=== PATIENT | female | born 1945 | race Caucasian/White ===

== ENCOUNTER → 2016-06-26 | Outpatient (CLI) | payer OTHER ==
[~2016-06-26] MED LIST: AMITRIP PO; ASPI-492 OR; ERYT250C12 OR; LANS15CA21 OR; RANITAB8 OR; TYLENOL #3; [UNRECOGNIZED DRUG - OTHER]
[2016-06-26 11:14] LABS: Albumin 3.2 g/dL (3.4-5.0); BUN/Creatinine Ratio 20.6; Bilirubin, Total 0.3 mg/dL (0.2-1.0); Calcium 8.5 mg/dL (8.5-10.1); Potassium 3.5 mmol/L (3.5-5.1); Total Protein 7.2 g/dL (6.4-8.2)
[2016-06-26 11:20] LABS: Basophils # (auto) 0.1 uL; Basophils % (auto) 0.9 % (0.0-2.0); DEFINITIVE VIEW TRANSMISSION; Eosinophils # (auto) 0.2 uL; Eosinophils % (auto) 2.8 % (0.0-7.0); Hematocrit 27.3 % (36.0-46.0); Hemoglobin 8.1 g/dL (12.2-16.2); Mean Corpuscular Hemoglobin 20.7 pg (28.0-32.0); Mean Corpuscular Hgb Conc. 29.6 g/dL (32.0-36.0); Mean Corpuscular Volume 69.9 fL (80.0-100.0); Mean Platelet Volume 9.3 fL (7.4-10.4); Monocytes # (auto) 0.4 uL; Neutrophils # (auto) 5.1 uL; Neutrophils % (auto) 65.3 % (37.0-80.0); Platelet Count (auto) 535 10^3/uL (140-450); Red Cell Distribution Width 19.6 % (11.6-16.0); White Blood Cell 7.8 10^3/uL (4.4-10.8)
[2016-06-26 11:26] LABS: Hypochromia Marked; Platelet Estimate Increased
[2016-06-26 11:27] LABS: Anisocytosis Moderate; Microcytosis Moderate
[2016-06-26 11:28] LABS: Polychromasia Slight; Schistocytes FEW
== END | disposition home or self-care (01) ==
LOC: LAB 10:11
PROVIDERS: ATTEND Internal Medicine
DX: Z00.00 Encounter for general adult medical examination without abnormal findings (principal)
CPT/HCPCS: 36415; 80053; 80061; 85025

== ENCOUNTER → 2016-08-28 | Outpatient (CLI) | payer OTHER ==
[~2016-08-28] MED LIST changes: +ERYT250C OR; -ERYT250C12 OR
[2016-08-28 11:48] LABS: Basophils # (auto) 0.1 uL; Basophils % (auto) 0.8 % (0.0-2.0); CONDITION Y; DEFINITIVE SEE PRINTOUT; Eosinophils # (auto) 0.2 uL; Eosinophils % (auto) 2.6 % (0.0-7.0); Hematocrit 41.7 % (36.0-46.0); Hemoglobin 13.6 g/dL (12.2-16.2); Lymphocytes # (auto) 2.2 uL; Lymphocytes % (auto) 32.9 % (10.0-50.0); Mean Corpuscular Hemoglobin 29.6 pg (28.0-32.0); Mean Corpuscular Hgb Conc. 32.6 g/dL (32.0-36.0); Mean Corpuscular Volume 90.9 fL (80.0-100.0); Mean Platelet Volume 9.3 fL (7.4-10.4); Monocytes # (auto) 0.4 uL; Monocytes % (auto) 6.3 % (0.0-12.0); Neutrophils # (auto) 3.9 uL; Neutrophils % (auto) 57.4 % (37.0-80.0); Platelet Count (auto) 303 10^3/uL (140-450); White Blood Cell 6.7 10^3/uL (4.4-10.8)
[2016-08-28 12:02] LABS: Red Cell Distribution Width 24.7 % (11.6-16.0)
[2016-08-28 12:57] LABS: Anisocytosis Slight; Burr Cells FEW; Ovalocytes FEW; Platelet Estimate Adequate
== END | disposition home or self-care (01) ==
LOC: LAB 10:52
PROVIDERS: ATTEND Internal Medicine
DX: D64.9 Anemia, unspecified (principal)
CPT/HCPCS: 36415; 82270; 82728; 83540; 83550; 85025

== ENCOUNTER → 2016-09-17 | Day surgery (SDC) | payer OTHER ==
[2016-09-10 16:56] LABS: INR 0.86 (0.9-1.15); Partial Thromboplastin Time 27.9 sec (22.64-33.71); Prothrombin Time 9.4 sec (9.37-12.3)
[2016-09-10 17:15] LABS: Basophils # (auto) 0.1 uL; Basophils % (auto) 1.1 % (0.0-2.0); CONDITION Y; DEFINITIVE SEE PRINTOUT; Eosinophils # (auto) 0.1 uL; Eosinophils % (auto) 2.6 % (0.0-7.0); Hematocrit 42.4 % (36.0-46.0); Hemoglobin 13.8 g/dL (12.2-16.2); Lymphocytes # (auto) 2.1 uL; Mean Corpuscular Hemoglobin 30.3 pg (28.0-32.0); Mean Corpuscular Hgb Conc. 32.5 g/dL (32.0-36.0); Mean Corpuscular Volume 93.4 fL (80.0-100.0); Mean Platelet Volume 9.9 fL (7.4-10.4); Monocytes # (auto) 0.3 uL; Monocytes % (auto) 5.6 % (0.0-12.0); Neutrophils # (auto) 3.2 uL; Neutrophils % (auto) 54.7 % (37.0-80.0); Platelet Count (auto) 328 10^3/uL (140-450); Red Cell Distribution Width 21.2 % (11.6-16.0); White Blood Cell 5.8 10^3/uL (4.4-10.8)
[~2016-09-17] VITALS: Ht 154.9 cm; Wt 46.3 kg
[~2016-09-17] MED LIST changes: +ACE3T PO; -ERYT250C OR; +FLUMAZENIL 0.1 MG/ML INJ 10ML MDV IV ONE; +LIDOCAINE VISCOUS 2% 15ML UD ONE; +MIDAZOLAM HCL 5 MG/ML-1ML VIAL ONE; +NALOXONE HCL 0.4 MG/ML VIAL ONE; +PRO20T OR; -RANITAB8 OR; +SODIUM CHLORIDE LOCK 10 ML ONE; +SUMA100T2 PO; +TRIA75TA55 PO; -TYLENOL #3; -[UNRECOGNIZED DRUG - OTHER]; +diphenhdrAMINE HCL 50 MG/1 ML VL ONE; +fentaNYL CITRATE 100 MCG/2 ML VL ONE
[2016-09-17] MEDS: fentaNYL CITRATE 100 MCG/2 ML VL ONE ×4 (09:34→09:56)
[2016-09-17] MEDS: MIDAZOLAM HCL 5 MG/ML-1ML VIAL ONE ×3 (09:34→09:47)
[2016-09-17 10:50] VITALS: BP 117/60
== END | disposition home or self-care (01) ==
LOC: GI 07:54
PROVIDERS: ATTEND Internal Medicine Gastroenterology
DX: K64.8 Other hemorrhoids (principal); K22.2 Esophageal obstruction; K28.9 Gastrojejunal ulcer, unspecified as acute or chronic, without hemorrhage or perforation; T18.2XXA Foreign body in stomach, initial encounter
CPT/HCPCS: 36415; 43249; 45378; 85025; 85610; 85730; J2250

== ENCOUNTER 2016-10-29 08:04 | Day surgery (SDC) | payer OTHER ==
[2016-10-25 11:40] LABS: Basophils # (auto) 0 uL; Basophils % (auto) 0.4 % (0.0-2.0); CONDITION Y; Eosinophils # (auto) 0.1 uL; Eosinophils % (auto) 1.8 % (0.0-7.0); Hematocrit 42.7 % (36.0-46.0); Hemoglobin 14.5 g/dL (12.2-16.2); Lymphocytes % (auto) 29.4 % (10.0-50.0); Mean Corpuscular Hemoglobin 31.8 pg (28.0-32.0); Mean Corpuscular Volume 93.7 fL (80.0-100.0); Mean Platelet Volume 9.3 fL (7.4-10.4); Monocytes # (auto) 0.4 uL; Monocytes % (auto) 6.3 % (0.0-12.0); Neutrophils # (auto) 4.2 uL; Neutrophils % (auto) 62.1 % (37.0-80.0); Platelet Count (auto) 310 10^3/uL (140-450); Red Cell Distribution Width 12.8 % (11.6-16.0); White Blood Cell 6.8 10^3/uL (4.4-10.8)
[2016-10-25 11:51] LABS: INR 0.89 (0.9-1.15); Partial Thromboplastin Time 27.9 sec (22.64-33.71); Prothrombin Time 9.7 sec (9.37-12.3)
[~2016-10-29] VITALS: Ht 154.9 cm; Wt 44.0 kg
[~2016-10-29 08:04] MED LIST changes: -FLUMAZENIL 0.1 MG/ML INJ 10ML MDV IV ONE; -LIDOCAINE VISCOUS 2% 15ML UD ONE; -MIDAZOLAM HCL 5 MG/ML-1ML VIAL ONE; -NALOXONE HCL 0.4 MG/ML VIAL ONE; -SODIUM CHLORIDE LOCK 10 ML ONE; -diphenhdrAMINE HCL 50 MG/1 ML VL ONE; -fentaNYL CITRATE 100 MCG/2 ML VL ONE
[2016-10-29] MEDS ORDERED: NALOXONE HCL 0.4 MG/ML VIAL ONE (08:09)
[2016-10-29] MEDS ORDERED: SODIUM CHLORIDE LOCK 10 ML ONE (08:10)
[2016-10-29] MEDS ORDERED: LIDOCAINE VISCOUS 2% 15ML UD ONE (08:10)
[2016-10-29] MEDS ORDERED: FLUMAZENIL 0.1 MG/ML INJ 10ML MDV IV ONE (08:10)
[2016-10-29] MEDS ORDERED: diphenhdrAMINE HCL 50 MG/1 ML VL ONE (08:10)
[2016-10-29] MEDS: fentaNYL CITRATE 100 MCG/2 ML VL ONE ×3 (09:15→09:30)
[2016-10-29] MEDS: MIDAZOLAM HCL 5 MG/ML-1ML VIAL ONE ×3 (09:15→09:30)
[2016-10-29 10:03] VITALS: BP 104/66
== END 2016-10-29 10:13 | disposition home or self-care (01) ==
LOC: GI 08:04
PROVIDERS: ATTEND Internal Medicine Gastroenterology
DX: K63.89 Other specified diseases of intestine (principal); K28.9 Gastrojejunal ulcer, unspecified as acute or chronic, without hemorrhage or perforation; T18.2XXA Foreign body in stomach, initial encounter
CPT/HCPCS: 36415; 43249; 85025; 85610; 85730; C1726; J1200; J2250; J3010; J7030; 99152

== ENCOUNTER 2017-04-01 07:49 | Day surgery (SDC) | payer OTHER ==
[2017-03-28 10:47] LABS: Basophils # (auto) 0.1 uL; Basophils % (auto) 1.1 % (0.0-2.0); Eosinophils # (auto) 0.2 uL; Hematocrit 39.4 % (36.0-46.0); Hemoglobin 12.5 g/dL (12.2-16.2); Lymphocytes # (auto) 1.8 uL; Lymphocytes % (auto) 29.7 % (10.0-50.0); Mean Corpuscular Hemoglobin 28.6 pg (28.0-32.0); Mean Corpuscular Hgb Conc. 31.7 g/dL (32.0-36.0); Mean Corpuscular Volume 90.1 fL (80.0-100.0); Monocytes # (auto) 0.4 uL; Monocytes % (auto) 6.7 % (0.0-12.0); Neutrophils # (auto) 3.6 uL; Neutrophils % (auto) 59.5 % (37.0-80.0); Platelet Count (auto) 315 10^3/uL (140-450); Red Blood Cells 4.37 10^6/uL (4.0-5.20); White Blood Cell 6.1 10^3/uL (4.4-10.8)
[2017-03-28 10:58] LABS: INR 0.9 (0.9-1.15); Prothrombin Time 9.8 sec (9.37-12.3)
[~2017-04-01] VITALS: Ht 154.9 cm; Wt 44.5 kg
[~2017-04-01 07:49] MED LIST changes: +FAM20T PO; -LANS15CA21 OR; +PANT40TA2 PO; +SUCR1TAB38 OR
[2017-04-01] MEDS ORDERED: SODIUM CHLORIDE LOCK 10 ML ONE (08:09)
[2017-04-01] MEDS ORDERED: LIDOCAINE VISCOUS 2% 15ML UD ONE (08:09)
[2017-04-01] MEDS ORDERED: diphenhdrAMINE HCL 50 MG/1 ML VL ONE (08:09)
[2017-04-01] MEDS: MIDAZOLAM HCL 5 MG/ML-1ML VIAL ONE ×2 (09:28→09:32)
[2017-04-01] MEDS: fentaNYL CITRATE 100 MCG/2 ML VL ONE ×2 (09:28→09:32)
[2017-04-01 10:25] VITALS: BP 119/85
== END 2017-04-01 10:35 | disposition home or self-care (01) ==
LOC: GI 07:49
PROVIDERS: ATTEND Internal Medicine Gastroenterology
DX: K28.9 Gastrojejunal ulcer, unspecified as acute or chronic, without hemorrhage or perforation (principal); T18.2XXA Foreign body in stomach, initial encounter; Z88.4 Allergy status to anesthetic agent; K31.89 Other diseases of stomach and duodenum
CPT/HCPCS: 36415; 43249; 85025; 85610; C1726; J1200; J2250; J3010; J7030; 99152

== ENCOUNTER → 2017-06-26 | Outpatient (CLI) | payer OTHER ==
[2017-06-26 11:04] LABS: Albumin 3.3 g/dL (3.4-5.0); Calcium 8.5 mg/dL (8.5-10.1); Potassium 3.7 mmol/L (3.5-5.1)
[2017-06-26 11:06] LABS: BUN/Creatinine Ratio 24.7
[2017-06-26 11:08] LABS: Bilirubin, Total 0.3 mg/dL (0.2-1.0)
[2017-06-26 11:13] LABS: Urine Bacteria NONE SEEN /hpf (None Seen); Urine Blood Negative /uL (Negative); Urine Mucus FEW (None Seen); Urine Specific Gravity 1.022 (1.001-1.035); Urine WBC 4 /hpf (0 - 5)
== END | disposition home or self-care (01) ==
LOC: LAB 10:05
PROVIDERS: ATTEND Internal Medicine
DX: M81.8 Other osteoporosis without current pathological fracture (principal); I10 Essential (primary) hypertension
CPT/HCPCS: 36415; 80053; 80061; 81001; 84443

== ENCOUNTER → 2017-10-29 | Outpatient (CLI) | payer OTHER ==
[~2017-10-29] VITALS: Ht 156.2 cm; Wt 47.2 kg
[2017-10-29 12:42] LABS: Basophils # (auto) 0.1 uL; Eosinophils # (auto) 0.4 uL; Lymphocytes # (auto) 2.1 uL; Monocytes # (auto) 0.4 uL; Neutrophils # (auto) 3.6 uL; White Blood Cell 6.6 10^3/uL (4.4-10.8)
[2017-10-29 12:44] LABS: Eosinophils % (auto) 6.3 % (0.0-7.0); Hematocrit 35.2 % (36.0-46.0); Hemoglobin 10.7 g/dL (12.2-16.2); Lymphocytes % (auto) 31.6 % (10.0-50.0); Mean Corpuscular Hemoglobin 23.5 pg (28.0-32.0); Mean Corpuscular Hgb Conc. 30.5 g/dL (32.0-36.0); Mean Corpuscular Volume 77.2 fL (80.0-100.0); Monocytes % (auto) 6.1 % (0.0-12.0); Nucleated Red Blood Cells % 0.1 %; Platelet Count (auto) 421 10^3/uL (140-450); Red Blood Cells 4.56 10^6/uL (4.0-5.20)
[2017-10-29 12:59] LABS: INR 0.86 (0.9-1.15); Partial Thromboplastin Time 27.3 sec (23.78-33.04); Prothrombin Time 9.3 sec (9.27-12.13)
[2017-10-29 13:02] LABS: Albumin 3.6 g/dL (3.4-5.0); BUN/Creatinine Ratio 20.5; Bilirubin, Total 0.4 mg/dL (0.2-1.0); Calcium 8.8 mg/dL (8.5-10.1); Potassium 3.4 mmol/L (3.5-5.1); Total Protein 7.6 g/dL (6.4-8.2)
[2017-10-29 13:46] LABS: Urine Bacteria NONE SEEN /hpf (None Seen); Urine Blood Negative /uL (Negative); Urine Mucus FEW (None Seen); Urine Specific Gravity 1.013 (1.001-1.035); Urine WBC 1 /hpf (0 - 5)
== END | disposition home or self-care (01) ==
LOC: LAB 08:00 → EDSTATUS 11-01 11:30
PROVIDERS: ATTEND Surgery
DX: M31.6 Other giant cell arteritis (principal)
CPT/HCPCS: 36415; 80053; 81001; 85025; 85610; 85730

== ENCOUNTER 2017-10-30 08:48 | Day surgery (SDC) | payer OTHER ==
[~2017-10-30] VITALS: Ht 154.9 cm; Wt 48.5 kg
[2017-10-30] MEDS ORDERED: ceFAZolin 1GM/50ML 50 ML IV ONE (10:14)
[2017-10-30] MEDS ORDERED: MIDAZOLAM HCL 1MG/1ML-2 ML VIAL ONE (10:24)
[2017-10-30] MEDS ORDERED: fentaNYL CITRATE 100 MCG/2 ML VL ONE (10:24)
[2017-10-30] MEDS ORDERED: ONDANSETRON HCL 4 MG/2 ML VIAL ONE (10:25)
[2017-10-30] MEDS ORDERED: SODIUM CHLORIDE LOCK 10 ML ONE (10:25)
[2017-10-30] MEDS ORDERED: PROPOFOL 10 MG/ML 20 ML IV ONE (10:25)
[2017-10-30] MEDS ORDERED: LIDOCAINE 1% (LOCAL ANESTH.) PF 5ml SDV ONE (10:55)
[2017-10-30] MEDS ORDERED: fentaNYL CITRATE 100 MCG/2 ML VL IV ONE (11:00)
[2017-10-30] MEDS ORDERED: METOCLOPRAMIDE HCL 5MG/ml INJ 2ml VIAL IV ONE (11:00)
[2017-10-30 13:53] VITALS: BP 130/77
== END 2017-10-30 13:55 | disposition home or self-care (01) ==
LOC: SUR 08:48
PROVIDERS: ATTEND Surgery
DX: K56.699 Other intestinal obstruction unspecified as to partial versus complete obstruction (principal); I66.02 Occlusion and stenosis of left middle cerebral artery; K29.60 Other gastritis without bleeding; K28.9 Gastrojejunal ulcer, unspecified as acute or chronic, without hemorrhage or perforation; T18.2XXA Foreign body in stomach, initial encounter; I10 Essential (primary) hypertension; K21.9 Gastro-esophageal reflux disease without esophagitis; F03.90 Unspecified dementia, unspecified severity, without behavioral disturbance, psychotic disturbance, mood disturbance, and anxiety; I34.1 Nonrheumatic mitral (valve) prolapse; M81.0 Age-related osteoporosis without current pathological fracture; H40.9 Unspecified glaucoma; D32.9 Benign neoplasm of meninges, unspecified; M19.90 Unspecified osteoarthritis, unspecified site; Z93.1 Gastrostomy status; Z98.890 Other specified postprocedural states; Z86.73 Personal history of transient ischemic attack (TIA), and cerebral infarction without residual deficits; Z79.82 Long term (current) use of aspirin; Z88.8 Allergy status to other drugs, medicaments and biological substances
CPT/HCPCS: 37609; 44799; 88305; 88313; 88331; A6257; C1726; J0690; J2250; J2405; J2704; J3010

== ENCOUNTER → 2017-12-10 | Outpatient (CLI) | payer OTHER ==
[2017-12-10 11:11] LABS: Basophils # (auto) 0.1 uL; Hemoglobin 11.3 g/dL (12.2-16.2); Neutrophils # (auto) 4.5 uL
[2017-12-10 11:13] LABS: Basophils % (auto) 1.2 % (0.0-2.0); Eosinophils # (auto) 0 uL; Eosinophils % (auto) 0.8 % (0.0-7.0); Hematocrit 36.6 % (36.0-46.0); Lymphocytes # (auto) 1.4 uL; Lymphocytes % (auto) 20.9 % (10.0-50.0); Mean Corpuscular Hemoglobin 23.6 pg (28.0-32.0); Mean Corpuscular Volume 76.1 fL (80.0-100.0); Monocytes # (auto) 0.6 uL; Monocytes % (auto) 8.6 % (0.0-12.0); Neutrophils % (auto) 68.5 % (37.0-80.0); Platelet Count (auto) 504 10^3/uL (140-450); Red Blood Cells 4.81 10^6/uL (4.0-5.20); Red Cell Distribution Width 18.6 % (11.8-14.3); White Blood Cell 6.6 10^3/uL (4.4-10.8)
[2017-12-10 11:26] LABS: BUN/Creatinine Ratio 15.7
[2017-12-10 11:51] LABS: INR 0.88 (0.9-1.15); Prothrombin Time 9.5 sec (9.27-12.13)
[2017-12-10 11:55] LABS: Potassium 2.9 mmol/L (3.5-5.1)
== END | disposition home or self-care (01) ==
LOC: LAB 10:57
PROVIDERS: ATTEND Internal Medicine Gastroenterology
DX: R10.9 Unspecified abdominal pain (principal)
CPT/HCPCS: 36415; 80048; 85025; 85610

== ENCOUNTER → 2017-12-16 | Day surgery (SDC) | payer OTHER ==
[~2017-12-16] MED LIST changes: +FLUMAZENIL 0.1 MG/ML INJ 10ML MDV IV ONE; +LIDOCAINE VISCOUS 2% 15ML UD ONE; +NALOXONE HCL 0.4 MG/ML VIAL ONE; +SODIUM CHLORIDE LOCK 10 ML ONE; +diphenhdrAMINE HCL 50 MG/1 ML VL ONE
[2017-12-16] MEDS: fentaNYL CITRATE 100 MCG/2 ML VL ONE ×2 (09:14→09:17)
[2017-12-16] MEDS: MIDAZOLAM HCL 5 MG/ML-1ML VIAL ONE ×2 (09:14→09:17)
[2017-12-16 10:01] VITALS: BP 105/43
== END | disposition home or self-care (01) ==
LOC: GI 07:48
PROVIDERS: ATTEND Internal Medicine Gastroenterology
DX: K28.9 Gastrojejunal ulcer, unspecified as acute or chronic, without hemorrhage or perforation (principal); K56.699 Other intestinal obstruction unspecified as to partial versus complete obstruction; K29.50 Unspecified chronic gastritis without bleeding; F32.9 Major depressive disorder, single episode, unspecified; M19.90 Unspecified osteoarthritis, unspecified site; M81.0 Age-related osteoporosis without current pathological fracture; Z88.4 Allergy status to anesthetic agent; Z79.891 Long term (current) use of opiate analgesic; Z79.899 Other long term (current) drug therapy
CPT/HCPCS: 43239; 43245; 88305; 88342; A6257; J2250; J3010; J7030; 99152

== ENCOUNTER → 2018-02-11 | Outpatient (CLI) | payer OTHER ==
[~2018-02-11] MED LIST changes: -FLUMAZENIL 0.1 MG/ML INJ 10ML MDV IV ONE; -LIDOCAINE VISCOUS 2% 15ML UD ONE; -NALOXONE HCL 0.4 MG/ML VIAL ONE; -SODIUM CHLORIDE LOCK 10 ML ONE; -diphenhdrAMINE HCL 50 MG/1 ML VL ONE
[2018-02-11 11:18] LABS: Basophils # (auto) 0.1 uL; Basophils % (auto) 1.4 % (0.0-2.0); Eosinophils # (auto) 0.1 uL
[2018-02-11 11:20] LABS: Eosinophils % (auto) 2.3 % (0.0-7.0); Hematocrit 31.3 % (36.0-46.0); Hemoglobin 9.6 g/dL (12.2-16.2); Lymphocytes # (auto) 1.5 uL; Lymphocytes % (auto) 29.4 % (10.0-50.0); Mean Corpuscular Hemoglobin 23.4 pg (28.0-32.0); Mean Corpuscular Hgb Conc. 30.7 g/dL (32.0-36.0); Monocytes # (auto) 0.4 uL; Monocytes % (auto) 7.1 % (0.0-12.0); Neutrophils # (auto) 3.1 uL; Neutrophils % (auto) 59.8 % (37.0-80.0); Platelet Count (auto) 372 10^3/uL (140-450); Red Blood Cells 4.12 10^6/uL (4.0-5.20); Red Cell Distribution Width 18.3 % (11.8-14.3); White Blood Cell 5.2 10^3/uL (4.4-10.8)
[2018-02-11 11:27] LABS: INR 0.85 (0.9-1.15); Prothrombin Time 9.2 sec (9.27-12.13)
== END | disposition home or self-care (01) ==
LOC: LAB 10:14
PROVIDERS: ATTEND Internal Medicine Gastroenterology
DX: Z01.812 Encounter for preprocedural laboratory examination (principal)
CPT/HCPCS: 36415; 85025; 85610

== ENCOUNTER → 2018-02-14 | Day surgery (SDC) | payer OTHER ==
[~2018-02-14] MED LIST changes: +FLUMAZENIL 0.1 MG/ML INJ 10ML MDV IV ONE; +LIDOCAINE VISCOUS 2% 15ML UD ONE; +MIDAZOLAM HCL 5 MG/ML-1ML VIAL ONE; +NALOXONE HCL 0.4 MG/ML VIAL ONE; +SODIUM CHLORIDE LOCK 10 ML ONE; +diphenhdrAMINE HCL 50 MG/1 ML VL ONE; +fentaNYL CITRATE 100 MCG/2 ML VL ONE
[2018-02-14 09:46] VITALS: BP 136/85
== END | disposition home or self-care (01) ==
LOC: GI 07:52
PROVIDERS: ATTEND Internal Medicine Gastroenterology
DX: K56.699 Other intestinal obstruction unspecified as to partial versus complete obstruction (principal); K28.9 Gastrojejunal ulcer, unspecified as acute or chronic, without hemorrhage or perforation; K29.70 Gastritis, unspecified, without bleeding; T18.2XXA Foreign body in stomach, initial encounter; F32.9 Major depressive disorder, single episode, unspecified; M19.90 Unspecified osteoarthritis, unspecified site; M81.0 Age-related osteoporosis without current pathological fracture; Z88.4 Allergy status to anesthetic agent; Z86.73 Personal history of transient ischemic attack (TIA), and cerebral infarction without residual deficits; Z79.891 Long term (current) use of opiate analgesic; Z79.899 Other long term (current) drug therapy
CPT/HCPCS: 43249; A6257; J2250; J3010; J7030; 99152

== ENCOUNTER → 2018-06-05 | Outpatient (CLI) | payer OTHER ==
[~2018-06-05] MED LIST changes: -FLUMAZENIL 0.1 MG/ML INJ 10ML MDV IV ONE; -LIDOCAINE VISCOUS 2% 15ML UD ONE; -MIDAZOLAM HCL 5 MG/ML-1ML VIAL ONE; -NALOXONE HCL 0.4 MG/ML VIAL ONE; -SODIUM CHLORIDE LOCK 10 ML ONE; -diphenhdrAMINE HCL 50 MG/1 ML VL ONE; -fentaNYL CITRATE 100 MCG/2 ML VL ONE
[2018-06-05 12:21] LABS: Basophils # (auto) 0.1 uL; Eosinophils # (auto) 0.1 uL; Hemoglobin 8.2 g/dL (12.2-16.2); Lymphocytes # (auto) 1.7 uL; Neutrophils # (auto) 3.8 uL; Urine Bacteria NONE SEEN /hpf (None Seen); Urine Blood Negative /uL (Negative); Urine Specific Gravity 1.019 (1.001-1.035); Urine WBC 2 /hpf (0 - 5); White Blood Cell 6.1 10^3/uL (4.4-10.8)
[2018-06-05 12:23] LABS: Basophils % (auto) 1.3 % (0.0-2.0); Eosinophils % (auto) 1.9 % (0.0-7.0); Hematocrit 28.3 % (36.0-46.0); Lymphocytes % (auto) 28.6 % (10.0-50.0); Mean Corpuscular Hemoglobin 20.2 pg (28.0-32.0); Mean Corpuscular Hgb Conc. 28.8 g/dL (32.0-36.0); Mean Corpuscular Volume 70.3 fL (80.0-100.0); Monocytes # (auto) 0.3 uL; Neutrophils % (auto) 63.2 % (37.0-80.0); Nucleated Red Blood Cells % 0.1 %; Platelet Count (auto) 413 10^3/uL (140-450); Red Blood Cells 4.03 10^6/uL (4.0-5.20); Red Cell Distribution Width 17.9 % (11.8-14.3)
[2018-06-05 13:41] LABS: Alanine Aminotransferase 17 U/L (13-56); Albumin 3.4 g/dL (3.4-5.0); Alkaline Phosphatase 93 U/L (45-117); Aspartate Aminotransferase 10 U/L (15-37); BUN/Creatinine Ratio 31.9; Bilirubin, Total 0.4 mg/dL (0.2-1.0); Blood Urea Nitrogen 23 mg/dL (7-18); Carbon Dioxide 26 mmol/L (21-32); Cholesterol 151 mg/dL (< 200); GFR African American 102 mL/min; GFR Non-African American 85 mL/min; Glucose 90 mg/dL (74-106); HDL Cholesterol 77 mg/dL (40-59); LDL Cholesterol 70 mg/dL (< 100); Total Protein 7.3 g/dL (6.4-8.2); Triglycerides 87 mg/dL (< 150)
[2018-06-05 13:43] LABS: Anion Gap 7 (5-15); Chloride 102 mmol/L (98-107); Potassium 3.4 mmol/L (3.5-5.1); Sodium 135 mmol/L (136-145)
== END | disposition home or self-care (01) ==
LOC: LAB 10:46
PROVIDERS: ATTEND Internal Medicine
DX: E87.6 Hypokalemia (principal); I10 Essential (primary) hypertension; D64.9 Anemia, unspecified
CPT/HCPCS: 36415; 80053; 80061; 81001; 84439; 84443; 85025; 85652

== ENCOUNTER → 2020-01-05 | Outpatient (CLI) | payer OTHER ==
[~2020-01-05] MED LIST changes: -FAM20T PO; +FAMO20TA10 PO; +SUCR1TAB22 OR; -SUCR1TAB38 OR
== END | disposition home or self-care (01) ==
LOC: LAB 09:53
PROVIDERS: ATTEND Internal Medicine Gastroenterology
DX: K29.00 Acute gastritis without bleeding (principal); R10.9 Unspecified abdominal pain
CPT/HCPCS: 82270

== ENCOUNTER → 2020-01-13 | Outpatient (CLI) | payer OTHER ==
[2020-01-13 09:16] LABS: Basophils # (auto) 0.1 10 ^3/uL (0-0.2); Eosinophils # (auto) 0.2 10 ^3/uL (0-0.8); Hematocrit 46.5 % (36.0-46.0); Hemoglobin 15.2 g/dL (12.2-16.2); Lymphocytes # (auto) 1.4 10 ^3/uL (0.4-5.4); Lymphocytes % (auto) 22.7 % (10.0-50.0); Mean Corpuscular Hemoglobin 31.8 pg (28.0-32.0); Mean Corpuscular Hgb Conc. 32.6 g/dL (32.0-36.0); Mean Corpuscular Volume 97.5 fL (80.0-100.0); Monocytes # (auto) 0.4 10 ^3/uL (0-1.3); Monocytes % (auto) 6.6 % (0.0-12.0); Neutrophils # (auto) 4.1 10 ^3/uL (1.6-8.6); Neutrophils % (auto) 66.7 % (37.0-80.0); Nucleated Red Blood Cells % 0.1 %; Platelet Count (auto) 301 10^3/uL (140-450); Red Blood Cells 4.77 10^6/uL (4.0-5.20); White Blood Cell 6.2 10^3/uL (4.4-10.8)
[2020-01-13 09:41] LABS: Urine Bacteria NONE SEEN /hpf (None Seen); Urine Blood Negative /uL (Negative); Urine Hyaline Cast FEW /lpf (0 - 2); Urine Mucus FEW (None Seen); Urine Specific Gravity 1.025 (1.001-1.035); Urine WBC 2 /hpf (0 - 5)
[2020-01-13 10:11] LABS: Albumin 3.6 g/dL (3.4-5.0); BUN/Creatinine Ratio 24.4; Bilirubin, Total 0.4 mg/dL (0.2-1.0); Calcium 10.1 mg/dL (8.5-10.1); Total Protein 7.6 g/dL (6.4-8.2)
[2020-01-13 10:38] LABS: Potassium 2.9 mmol/L (3.5-5.1)
== END | disposition home or self-care (01) ==
LOC: LAB 08:39
PROVIDERS: ATTEND Internal Medicine
DX: I10 Essential (primary) hypertension (principal); K29.00 Acute gastritis without bleeding; R10.9 Unspecified abdominal pain
CPT/HCPCS: 36415; 80053; 80061; 81001; 82270; 82274; 82941; 83036; 84443; 85025; 85652

== ENCOUNTER → 2020-02-11 | Outpatient (CLI) | payer OTHER ==
[2020-02-11 12:27] LABS: Calcium 8.7 mg/dL (8.5-10.1); Potassium 3.5 mmol/L (3.5-5.1)
[2020-02-11 12:30] LABS: BUN/Creatinine Ratio 16.3
== END | disposition home or self-care (01) ==
LOC: LAB 09:35
PROVIDERS: ATTEND Internal Medicine
DX: E87.6 Hypokalemia (principal)
CPT/HCPCS: 36415; 80048

== ENCOUNTER → 2020-02-24 | Outpatient (CLI) | payer OTHER ==
[2020-02-24 10:54] LABS: BUN/Creatinine Ratio 19.1; Calcium 9.3 mg/dL (8.5-10.1); Potassium 3.2 mmol/L (3.5-5.1)
== END | disposition home or self-care (01) ==
LOC: LAB 09:51
PROVIDERS: ATTEND Internal Medicine
DX: E87.6 Hypokalemia (principal)
CPT/HCPCS: 36415; 80048

== ENCOUNTER → 2020-03-22 | Outpatient (CLI) | payer OTHER | END | disposition home or self-care (01) | LOC: LAB 11:50 | PROVIDERS: ATTEND Internal Medicine | DX: E87.6 Hypokalemia (principal) | CPT/HCPCS: 36415; 84132 ==

== ENCOUNTER 2020-03-29 08:52 | Day surgery (SDC) | payer OTHER ==
[2020-03-24 10:49] LABS: Basophils # (auto) 0.1 10 ^3/uL (0-0.2); Basophils % (auto) 1.2 % (0.0-2.0); Eosinophils # (auto) 0 10 ^3/uL (0-0.8); Eosinophils % (auto) 0.7 % (0.0-7.0); Hematocrit 43.5 % (36.0-46.0); Hemoglobin 14.9 g/dL (12.2-16.2); Lymphocytes # (auto) 1.2 10 ^3/uL (0.4-5.4); Lymphocytes % (auto) 20.6 % (10.0-50.0); Mean Corpuscular Hemoglobin 31.9 pg (28.0-32.0); Mean Corpuscular Hgb Conc. 34.1 g/dL (32.0-36.0); Mean Corpuscular Volume 93.5 fL (80.0-100.0); Monocytes # (auto) 0.4 10 ^3/uL (0-1.3); Neutrophils # (auto) 4.2 10 ^3/uL (1.6-8.6); Neutrophils % (auto) 70.5 % (37.0-80.0); Platelet Count (auto) 340 10^3/uL (140-450); Red Blood Cells 4.66 10^6/uL (4.0-5.20); Red Cell Distribution Width 12.9 % (11.8-14.3); White Blood Cell 5.9 10^3/uL (4.4-10.8)
[2020-03-24 11:09] LABS: INR 0.96 (0.9-1.15); Partial Thromboplastin Time 29.6 sec (23.0-31.2)
[~2020-03-29] VITALS: Ht 154.9 cm; Wt 45.4 kg
[~2020-03-29 08:52] MED LIST changes: -ACE3T PO; +ALOE25CA PO; -AMITRIP PO; -ASPI-492 OR; +ASPITAB34 PO; +BRIN1SUS6 OP; +HYOS0.1293 PO; +IRON100T PO; +LATA0.0020 EACHEYE; +POTA-220 PO; -PRO20T OR; +PRO20T PO; +TIMO0.5S32 OP
[2020-03-29] MEDS ORDERED: diphenhdrAMINE HCL 50 MG/1 ML VL ONE (09:03)
[2020-03-29] MEDS ORDERED: LIDOCAINE VISCOUS 2% 15ML UD ONE (10:16)
[2020-03-29] MEDS: fentaNYL CITRATE 100 MCG/2 ML VL ONE ×2 (10:18→10:21)
[2020-03-29] MEDS: MIDAZOLAM HCL 5 MG/ML-1ML VIAL ONE ×2 (10:18→10:21)
[2020-03-29 11:25] VITALS: BP 119/64
== END 2020-03-29 11:30 | disposition home or self-care (01) ==
LOC: GI 08:52
PROVIDERS: ATTEND Internal Medicine Gastroenterology
DX: R10.9 Unspecified abdominal pain (principal); K28.9 Gastrojejunal ulcer, unspecified as acute or chronic, without hemorrhage or perforation; K56.699 Other intestinal obstruction unspecified as to partial versus complete obstruction; K29.70 Gastritis, unspecified, without bleeding; K31.89 Other diseases of stomach and duodenum; I34.1 Nonrheumatic mitral (valve) prolapse; K21.9 Gastro-esophageal reflux disease without esophagitis; H40.9 Unspecified glaucoma; Z98.890 Other specified postprocedural states; Z79.899 Other long term (current) drug therapy; Z20.822 Contact with and (suspected) exposure to COVID-19; Z88.6 Allergy status to analgesic agent
CPT/HCPCS: 36415; 43249; 85025; 85610; 85730; C1726; J1200; J2250; J3010; J7030; U0003; 43213; 43245; 99152

== ENCOUNTER → 2020-05-03 | Outpatient (CLI) | payer OTHER ==
[2020-05-03 12:34] LABS: BUN/Creatinine Ratio 16.7; Calcium 9.6 mg/dL (8.5-10.1); Potassium 3.7 mmol/L (3.5-5.1)
== END | disposition home or self-care (01) ==
LOC: LAB 11:25
PROVIDERS: ATTEND Internal Medicine
DX: E87.6 Hypokalemia (principal)
CPT/HCPCS: 36415; 80048

== ENCOUNTER → 2020-06-07 | Outpatient (CLI) | payer OTHER | END | disposition home or self-care (01) | LOC: LAB 15:36 | PROVIDERS: ATTEND Family Medicine | DX: C44.92 Squamous cell carcinoma of skin, unspecified (principal) ==

== ENCOUNTER → 2020-06-07 | Outpatient (CLI) | payer OTHER ==
[2020-06-07 12:29] LABS: BUN/Creatinine Ratio 20.6; Calcium 9.2 mg/dL (8.5-10.1)
== END | disposition home or self-care (01) ==
LOC: LAB 11:16
PROVIDERS: ATTEND Internal Medicine
DX: I10 Essential (primary) hypertension (principal)
CPT/HCPCS: 36415; 80048